=== PATIENT | male | born 1990 | race Caucasian/White ===

== ENCOUNTER 2025-04-23 23:10 | Emergency (ER) | payer OTHER, SELFPAY ==
--- NOTE | ~2025-04-23 | CT_ITS ---
EXAMINATION: CT abdomen pelvis wo/w con DATE: 04/24/2025 04:45 INDICATION: Hematuria. TECHNIQUE: Computed tomography (CT) of the abdomen and pelvis was performed without and with intravenous contrast using a total of 130 mL Omnipaque-350 intravenous contrast with a double-bolus technique for simultaneous opacification of the renal parenchyma and renal collecting system. Automated exposure control and iterative reconstruction technique were employed. The dose- length product was 1378.46 mGy-cm. COMPARISON: None FINDINGS: The visualized portions of the lung bases are clear without pneumonia or pleural effusion. The heart size is normal. No pericardial effusion. The liver, gallbladder, spleen, pancreas, adrenal glands, and kidneys are normal. There is no urolithiasis. The prostate is mildly enlarged. The ureters are well opacified and are normal. The bladder is normal. The appendix is normal. There are no dilated loops of bowel. There are no pathologically enlarged lymph nodes. There is no free intraperitoneal fluid. There is mild lumbar spondylosis. IMPRESSION: 1. No specific etiology for hematuria. Reviewed, dictated and finalized at location E.
--- OUTSIDE RECORDS SUMMARY | 2025-04-23 20:46 | XMS_ITS ---
Author Organization [facility]. Allergies No Known Allergies Medications Current Medications Medication Directions Start Date Discontinues Da te naproxen 500 mg tabs 1 tab orally 2 time s per day as needed for pain 2025-02-13 cyclobenzaprine 5 mg tabs 1 tab orally 3 times per day as needed for muscle spasm 2025-02-13 Problems Problem Status Assessment and P zenaida Back pain Active Assessment: Back pain s well as knee pain due to overusePlan: rx for naproxen, cyclobenzaprine , tylenol and lidocaine patches recommendedsee messaging, follow up if persistent History of Procedures Order Codes Created Status No known procedures Results Tests Date Results Flag Units Reference Interval No Results Within Months MENTAL STATUS No information Family History No Known Family History Social History Social History Observation Description Dates Observed Smoking Status Never smoker January 13, 2025 Social Data No Known Social Data Immunizations Vaccine Date Status Unknown immunization status 04/24/2025 Comp leted Plan of Treatment Health Screenings Date Goal Action Comments January 15, 2025 Depression screening PHQ-2 Insurance Providers Payer name Policy type / Coverage type Policy ID Covered democrat ID Policy [employer] Other [id number] OI Self
[2025-04-23 23:19] VITALS: BP 154/74; PULSE 91; RESP 16; TEMP 36.8; O2SAT 100
[2025-04-23 23:36] LABS: Non Pathogenic Casts 0-2
[2025-04-23 23:37] LABS: Add Urine Microscopic? YES; Appearance Urine Cloudy (Clear); Glucose Urine UA Negative (Negative); Leukocyte Esterase Ur 3+ LEU/UL (Negative); Nitrate Urine Negative (Negative); Specific Grav Ur 1.013 (1.001-1.035)
--- NOTE | 2025-04-24 02:53 | ED_ITS ---
HPI - General Adult General Chief complaint: Urogenital-Male Stated complaint: hematuria Time Seen by Provider: 04/24/25 03:06 History of Present Illness HPI narrative: Patient 34-year-old gentleman who presents emergency department with chief complaint of hematuria patient reports that he is traveling from [place] and reports that when he urinated he noticed that his urine was extremely dark and had some small clots in the patient reports that he has had some discomfort whenever he urinates patient denies fever denies flank pain denies difficulty starting his stream Related Data Allergies Allergy/AdvReac Type Severity Reaction Status Date / Time No Known Allergies Allergy Verified 04/24/25 05:42 Review of Systems 2 Review of Systems: A 10 system review of systems was completed on the patient and is negative except for what is stated in the HPI. Nursing and ancillary documentation was reviewed. Exam 2 Narrative: GENERAL: Well-appearing, well-nourished, and in no acute distress. HEAD: Normocephalic, atraumatic. EYES: PERRLA and EOMI. ENT: Nares clear, no rhinorrhea or epistaxis. Mucous membranes moist. NECK: Supple. CHEST: Clear to auscultation. No respiratory distress. HEART: Regular rate and rhythm. No murmur heard. Normal peripheral pulses. ABDOMEN: Soft, nontender, nondistended, normal active bowel sounds. EXTREMITIES: Normal range of motion. No edema. SKIN: Warm, dry, no rash. NEURO: No focal deficits. Alert and oriented x3. PSYCH: Normal mood and affect. Course Vital Signs Vital signs: Vital Signs Temperature 36.8 C 04/23/25 23:19 Pulse Rate 91 04/23/25 23:19 Respiratory Rate 16 04/23/25 23:19 Blood Pressure 154/74 H 04/23/25 23:19 Pulse Oximetry 100 04/23/25 23:19 Oxygen Delivery Room Air 04/23/25 23:19 Temperature 36.8 C 04/23/25 23:19 Pulse Rate 82 04/24/25 04:02 Respiratory Rate 18 04/24/25 04:02 Blood Pressure 136/66 04/24/25 04:02 Pulse Oximetry 99 04/24/25 04:02 Oxygen Delivery Room Air 04/23/25 23:19 Medical Decision Making [facility] Narrative Medical decision making narrative: Differential diagnosis includes ureterolithiasis, UTI, pyelonephritis, hemorrhagic cystitis, Laboratory studies were obtained on the patient which showed a white count of 16.1 electrolytes showed no significant abnormality urinalysis showed greater than 100 white blood cells and greater than 100 red blood cells 3+ leukocyte esterase and 1+ bacteria CT scan showed no evidence of obstructing stone no evidence of acute abnormalities patient be given a dose Rocephin will be discharged home to follow-up with his primary care provider Vital Signs Vital Signs: Vital Signs Temperature 36.8 C 04/23/25 23:19 Pulse Rate 91 04/23/25 23:19 Respiratory Rate 16 04/23/25 23:19 Blood Pressure 154/74 H 04/23/25 23:19 Pulse Oximetry 100 04/23/25 23:19 Oxygen Delivery Room Air 04/23/25 23:19 Temperature 36.8 C 04/23/25 23:19 Pulse Rate 82 04/24/25 04:02 Respiratory Rate 18 04/24/25 04:02 Blood Pressure 136/66 04/24/25 04:02 Pulse Oximetry 99 04/24/25 04:02 Oxygen Delivery Room Air 04/23/25 23:19 Lab Data 04/24/25 04:00 04/24/25 04:00 Labs: Lab Results 04/23/25 04/24/25 Range/Units 23:25 04:00 WBC 16.1 H (4.5-10.0) K/mm3 RBC 5.55 (4.6-6.20) M/mm3 Hgb 15.5 (14.0-18.0) g/dL Hct 45.6 (42.0-52.0) % MCV 82.2 (80-100) fl MCH 27.9 (26-34) pg MCHC 34.0 (32-36) g/dl RDW 11.7 (11.5-14.5) % Plt Count 299 (150-375) k/mm3 MPV 9.3 (7.4-10.4) fl Immature Gran % (Auto) 0.2 (0-0.5) % Neut % (Auto) 85.2 H (45.5-73.1) % Lymph % (Auto) 9.0 L (18.3-44.2) % Dare % (Auto) 5.4 (2.6-8.5) % Eos % (Auto) 0.0 (0-4.4) % Baso % (Auto) 0.2 (0.2-1.2) % Lymph # (Auto) 1.45 (0.9-3.2) K/mm3 Dare # (Auto) 0.9 H (0.1-0.6) K/mm3 Eos # (Auto) 0.0 (0-0.3) K/mm3 Baso # (Auto) 0.0 (0.0-0.1) K/mm3 Abs Immat Gran (auto) 0.04 H (0.00-0.031) K/mm3 Absolute Neuts (auto) 13.7 H (1.3-6.7) K/mm3 Absolute Nucleated RBC 0.000 (0.0-0.012) K/mm3 Nucleated RBC % 0.0 (0.0-0.2) % PT 14.3 (11.1-14.7) Seconds INR 1.1 APTT 27.5 (22.3-36.8) Seconds Sodium 137 (137-145) mmol/L Potassium 3.7 (3.4-5.0) mmol/L Chloride 101 (98-107) mmol/L Carbon Dioxide 25 (22-30) mmol/L Anion Gap 11 (4-12) mmol/L BUN 13 (9-20) mg/dL Creatinine 0.84 (0.7-1.3) mg/dL Estim Creat Clear Calc 110 ml/min Estimated GFR > 60 (59 - ) Glucose 121 H (65-110) mg/dL Calcium 9.3 (8.4-10.2) mg/dL Total Bilirubin 0.5 (0.2-1.3) mg/dL AST 30 (17-59) U/L ALT 26 (6-50) U/L Alkaline Phosphatase 95 (38-126) U/L Total Protein 9.1 H (6.3-8.2) g/dL Albumin 4.7 (3.5-5.1) g/dL Urine Color Dark candido (Yellow) Urine Appearance Cloudy H (Clear) Urine pH 6.0 (5.0-9.0) Ur Specific [place] 1.013 (1.001-1.035) Urine Protein 1+ H (Negative) mg/dL Urine Glucose (UA) Negative (Negative) mg/dL Urine Ketones Negative (Negative) mg/dL Ur Blood (Man) 3+ H (Negative) Urine Nitrate Negative (Negative) Urine Bilirubin Negative (Negative) Urine Urobilinogen 1.0 (<2.0) mg/dL Leukocyte Esterase Rfl 3+ H (Negative) BELLE/UL Urine RBC >100 H (0-2) /hpf Urine WBC >100 H (0-3) /hpf Ur Squamous Epith Cells None seen (Few) /hpf Urine Bacteria 1+ H /hpf Urine Casts 0-2 Discharge Plan Discharge Clinical Impression: Acute UTI, Hematuria Patient Disposition: Home Condition: Stable Instructions: Antibiotic Form, Urinary Tract Infection in Men (ED), Hematuria (ED) Additional Instructions: Please follow-up with your primary care provider it is recommended that you talk with them about referral to urology for evaluation of the blood in your urine Patient Language: Citizen Of [place] Prescriptions: New cephalexin 500 mg capsule 500 mg PO Q8H 7 Days Qty: 21 0RF Follow-up/Referrals: PHYSICIAN NOT ON STAFF,NONSTAFF [Primary Care Provider] Time of Disposition: 05:44
[2025-04-24 04:02] VITALS: BP 136/66; PULSE 82; RESP 18; O2SAT 99
[2025-04-24 04:05] LABS: Hematocrit 45.6 % (42.0-52.0); Hemoglobin 15.5 g/dL (14.0-18.0); Immature Granulocyte Percent A 0.2 % (0-0.5); Lymphocytes Absolute Auto 1.45 K/mm3 (0.9-3.2); Mean Corpuscular HGB Conc 34.0 g/dl (32-36); Mean Corpuscular Hemoglobin 27.9 pg (26-34); Mean Corpuscular Volume 82.2 fl (80-100); Nucleated Red Blood Cells Absolute Auto 0.000 K/mm3 (0.0-0.012); Nucleated Red Blood Cells Perc 0.0 % (0.0-0.2); Platelet Count Result 299 k/mm3 (150-375); Red Blood Count 5.55 M/mm3 (4.6-6.20); White Blood Count 16.1 K/mm3 (4.5-10.0)
[2025-04-24 04:16] LABS: Alanine Aminotransferase 26 U/L (6-50); Albumin Level 4.7 g/dL (3.5-5.1); Alkaline Phosphatase 95 U/L (38-126); Anion Gap 11 mmol/L (4-12); Aspartate Amino Transferase 30 U/L (17-59); Bilirubin,Total 0.5 mg/dL (0.2-1.3); Blood Urea Nitrogen 13 mg/dL (9-20); Calcium 9.3 mg/dL (8.4-10.2); Carbon Dioxide 25 mmol/L (22-30); Chloride 101 mmol/L (98-107); Estimated CRCL calculation 110 ml/min; Estimated Glomerular Filt Rate > 60; Glucose 121 mg/dL (65-110); Potassium 3.7 mmol/L (3.4-5.0); Sodium 137 mmol/L (137-145); Total Protein 9.1 g/dL (6.3-8.2)
[2025-04-24 04:17] LABS: INR 1.1; Prothrombin Time 14.3 Seconds (11.1-14.7)
[2025-04-24 04:18] LABS: Partial Thromboplastin Time 27.5 Seconds (22.3-36.8)
[2025-04-24] MEDS: cefTRIAXone 1 GM in SODIUM CHLORIDE 0.9% IV 50 ML 100 ML IVPB (05:56)
[2025-04-24 06:30] VITALS: BP 128/72; PULSE 80; RESP 20; TEMP 36.7; O2SAT 100
== END 2025-04-24 06:31 | disposition home or self-care (01) ==
PROVIDERS: Emergency Provider Emergency Medicine
DX: N39.0 Urinary tract infection, site not specified (principal); R31.9 Hematuria, unspecified
CPT/HCPCS: 36415; 74178; 80053; 81001; 85025; 85610; 85730; 87077; 87086; 87186; 96365; 99284; J0696; Q9967